=== PATIENT | female | born 1935 | race Caucasian/White ===

== ENCOUNTER 2017-05-14 11:16 | Emergency (ER) | payer OTHER ==
[~2017-05-14 11:16] MED LIST: ACIPHEX20 MG PO; ACTOS PO; ALBUTEROL17 GM INH; ALLEGRA PO; ALPRAZOLAM PO; AMARYL PO; AMARYL2 MG PO; ASPIRIN PO; ASPIRIN81 M1 PO; BENICAR PO; BUMETANIDE1 MG PO; BUMETANIDE2 M1 PO; BUMEX1 MG PO; CARAFATE PO; COZAAR PO; DARVOCET-N 1001 TAB PO; EC-NAPROSYN500 MG PO; FAMOTIDINE PO; FLOMAX0.4 M1 PO; FLONASE 0.05% N16 GM; FLONASE16 GM IH; GLIMEPIRIDE1 M1 PO; GLUCOPHAGE XR500 MG PO; HCTZ PO; HYDROCODON-ACE1 EAC7 PO; HYDROCODONE-APA1 T55 PO; K-DUR20 ME1 PO; KCL PO; LASIX PO; LEVAQUIN750 MG PO; LIPITOR20 MG PO; LOSARTAN POTAS100 MG PO; NASACORT AQ16.5 GM; OMEPRAZOLE20 M2 PO; OXYGEN; PRILOSEC20 M1 PO; PROMETHAZINE D118 ML PO; PROMETHAZINE V240 ML PO; SINGULAIR PO; SYMBICORT 16010.2 GM INH; SYMBICORT INH; TRICOR PO; TRIGLIDE160 M1 PO; TRILIPIX PO; TRILIPIX135 MG PO; ZESTORETIC 20/21 TAB PO; ZITHROMAX PO; ZOCOR PO
[2017-07-24] MEDS ORDERED: FLOMAX0.4 M1 PO (10:10)
[2017-07-24] MEDS ORDERED: POTASSIUM (10:11)
[2017-07-24] MEDS ORDERED: OMEPRAZOLE (10:11)
[2017-07-24] MEDS ORDERED: GLIMEPIRIDE (10:12)
[2017-07-24] MEDS ORDERED: METFORMIN (10:12)
[2017-07-24] MEDS ORDERED: BUMETANIDE (10:12)
[2017-07-24] MEDS ORDERED: ATORVASTATIN (10:13)
[2017-07-24] MEDS ORDERED: MONTELUKAST (10:13)
[2017-07-24] MEDS ORDERED: [UNRECOGNIZED DRUG - OTHER] (10:14)
[2017-07-24] MEDS ORDERED: [UNRECOGNIZED DRUG - OTHER] (10:15)
[2017-07-24] MEDS ORDERED: VITAMIN D (10:16)
[2017-07-24] MEDS ORDERED: VENTOLIN (10:16)
[2017-07-24] MEDS ORDERED: ALENDRONATE (10:17)
[2017-07-24] MEDS ORDERED: OMEPRAZOLE40 M1 (11:56)
[2017-07-24] MEDS ORDERED: TYLENOL #3 (11:57)
== END 2017-05-14 12:35 | disposition home or self-care (01) ==
LOC: CED 11:16
DX: H92.02 Otalgia, left ear (principal); H57.11 Ocular pain, right eye; E11.9 Type 2 diabetes mellitus without complications; J44.9 Chronic obstructive pulmonary disease, unspecified; Z79.82 Long term (current) use of aspirin; Z79.899 Other long term (current) drug therapy
CPT/HCPCS: 99282

== ENCOUNTER → 2017-07-24 | Day surgery (SDC) | payer OTHER ==
[~2017-07-24] MED LIST changes: +ALENDRONATE; +ATORVASTATIN; +BUMETANIDE; +GLIMEPIRIDE; +METFORMIN; +MONTELUKAST; +OMEPRAZOLE; +OMEPRAZOLE40 M1; +POTASSIUM; +TYLENOL #3; +VENTOLIN; +VITAMIN D; +[UNRECOGNIZED DRUG - OTHER]; +[UNRECOGNIZED DRUG - OTHER]
--- NOTE | ~2017-07-24 | OR ---
Unit #: [id number] #: [id number] Patient: ANTHONY WATERS [id number] [address] [address] [id number] O MR#: [id number] NAME: ANTHONY WATERS ROOM: Date of Procedure: 07/24/2017 Admission Date: 07/24/2017 Surgeon: Foreign Jara M.D. : 1935 Attending Physician: Foreign Jara M.D. Referring Physician: Foreign Jara M.D. Primary Care Physician: Tremaine Ríos M.D. OPERATIVE REPORT PRIMARY CARE PHYSICIAN Prudence Sousa A.P.R.N. PREOPERATIVE DIAGNOSES Dysphagia and chronic cough. PROCEDURES PERFORMED Upper gastrointestinal endoscopy and biopsy. POSTOPERATIVE DIAGNOSES 1. The patient had a large paraesophageal hiatus hernia. 2. There was moderate diffuse prepyloric antral gastritis. 3. Rest of the examination up to third part of duodenum was normal. RECOMMENDATIONS The patient is advised to increase the dose of lansoprazole 30 mg p.o. b.i.d. She will be followed up in the office in 8 to 10 weeks' time. SEDATION USED MAC. DESCRIPTION OF PROCEDURE Following detailed explanation of potential risks and complications of an upper endoscopy, namely perforation, bleeding, and complications related to sedation, the patient was brought to GI lab and laid in the left lateral decubitus position. Lubricated tip of the Olympus video upper endoscope was passed through bite block into the proximal esophagus under direct vision. The entire esophageal mucosa was examined and appeared normal. Z-line was nicely demarcated. As soon as the scope was advanced into the gastric cavity, a large paraesophageal hiatus hernia was noted. The scope was carefully diverted towards the body and antrum and moderately severe diffuse prepyloric antral erosive gastritis noted. Pylorus was intubated with visualization of the normal duodenal bulb and second and third part of the duodenum. Upon withdrawal and retroflexion, incisura, cardia, and greater curve examined and biopsy obtained from the antrum for CLOtest. The scope was then withdrawn in the distal esophagus. The entire esophageal mucosa was examined all the way up to pharynx. No additional findings noted. The patient tolerated the procedure without any postprocedure complications. Dictated by... Foreign Jara M.D. Unit #: [id number] #: [id number] Patient: ANTHONY WATERS DESIRAE/rafael TD: 07/24/2017 16:15 JOB #: [id number] CC: Prudence Sousa A.P.R.N. OPERATIVE REPORT Page 1 of 1 X Foreign Jara MD PROCEDURE OPERATIVE NOTE
== END | disposition home or self-care (01) ==
LOC: COPS 09:32
DX: K29.60 Other gastritis without bleeding (principal); K44.9 Diaphragmatic hernia without obstruction or gangrene; R05 Cough; K21.9 Gastro-esophageal reflux disease without esophagitis; I10 Essential (primary) hypertension; K58.9 Irritable bowel syndrome, unspecified; M85.80 Other specified disorders of bone density and structure, unspecified site; E11.9 Type 2 diabetes mellitus without complications; Z79.84 Long term (current) use of oral hypoglycemic drugs; Z79.899 Other long term (current) drug therapy; N39.3 Stress incontinence (female) (male); R39.15 Urgency of urination; Z87.01 Personal history of pneumonia (recurrent); Z87.09 Personal history of other diseases of the respiratory system; Z90.49 Acquired absence of other specified parts of digestive tract; Z98.890 Other specified postprocedural states
CPT/HCPCS: 82947; 87077